=== PATIENT | female | born 1945 | race Caucasian/White ===

== ENCOUNTER 2016-10-23 15:58 | Observation (INO) ==
[2016-10-23] MEDS ORDERED: Aspirin 81 MG TAB.CHEW PO ONE (16:07)
[2016-10-23 17:01] LABS: Bilirubin,Urine Negative (Negative); Blood,Urine Negative (Negative); Clarity,Urine Clear (Clear); Color,Urine Yellow (Yellow); Glucose,Urine (UA) Normal (Normal); Ketones,Urine Negative (Negative); Leukocyte Esterase,Urine Small (Negative); Nitrite,Urine Negative (Negative); Protein,Urine Trace mg/dL (Neg-Trace); Specific Gravity,Urine 1.022 (1.010-1.025); Urobilinogen,Urine Normal (Normal)
[2016-10-23 17:04] LABS: Hyaline Casts,Urine None Seen per lpf (None-Few); Squamous Epithelial Cell,Urine Many per lpf (None-Few); WBC,Urine 15-30 per hpf (0-3)
[2016-10-23 17:16] LABS: Basophils # 0.1 K/mcL (0.0-0.2); Basophils % 0.8 %; Eosinophils # 0.4 K/mcL (0.0-0.6); Eosinophils % 3.9 %; Hematocrit 39.1 % (35.3-44.9); Hemoglobin 12.6 g/dL (11.5-15.4); Immature Granulocytes % 0.5 % (0-4); Lymphocytes % 20.7 %; Mean Corpuscular HGB Conc 32.2 g/dL (31.6-35.5); Mean Corpuscular Volume 93.1 fL (83.0-100.0); Mean Platelet Volume 10.2 fL (9.4-12.4); Monocytes # 0.6 K/mcL (0.0-1.3); Monocytes % 6.8 %; Neutrophils # 6.4 K/mcL (1.6-8.9); Platelet Count 201 K/mcL (140-400); Segmented Neutrophils % 67.3 %
[2016-10-23 17:27] LABS: Bacteria,Urine Few per hpf (None-Few)
[2016-10-23 17:33] LABS: Calcium 9.4 mg/dL (8.6-10.8); Potassium 4.1 mEq/L (3.5-4.5)
[2016-10-23] MEDS ORDERED: Ondansetron 4 MG/2 ML VIAL IVP ONE (18:28)
--- NOTE | 2016-10-23 18:43 | Emergency Department Note ---
Disposition Clinical Impression: Nausea Headache Qualifiers: Headache type: unspecified Headache chronicity pattern: unspecified pattern Intractability: not intractable Qualified Code(s): R51 - Headache Hypertension Qualifiers: Hypertension type: essential hypertension Qualified Code(s): I10 - Essential ( primary) hypertension Disposition: Still a Patient Condition: Good Referrals: NO,PCP [Non-Partnered Physician] - Forms: ED Satisfaction Letter Time of Disposition: 20:54 General Adult HPI - General Chief complaint: ED Nausea/Vomiting/Diarrhea Stated complaint: HTN/N/V Time Seen by Provider: 10/23/16 16:05 Source: patient, EMS Mode of arrival: EMS Limitations: no limitations Nursing Notes Reviewed: Yes Vital Signs Reviewed: Yes - History of Present Illness HPI Narrative: Patient presents to emergency room with complaint of headache and hypertension. She has this happen every couple months. Patient said that she acutely gets a headache nausea and pain behind her left eye. Usually after that her blood pressure gets high. Patient was concerned because her blood pressure home was greater than 201, the emergency room for evaluation. Denies any other symptoms or complaints at this point. This is happen multiple times in the past and is presenting today identical to her previous events. 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 Radiation: non-radiation Pain Severity: moderate Pain Scale: 7 Consistency: constant Improves with: nothing Worsens with: nothing Associated symptoms: Reports: denies other symptoms Treatments Prior to Arrival: none - Related Data Home Medications Medication Instructions Recorded Confirmed Lisinopril 08/23/16 amLODIPine 08/23/16 Previous Rx's Medication Instructions Recorded Diltiazem HCl [Diltiazem 12Hr ER] 120 mg PO BID #60 cap.er.12h 08/23/16 Allergies Allergy/AdvReac Type Severity Reaction Status Date / Time Sulfa (Sulfonamide Allergy Rash Verified 08/23/16 14:16 Antibiotics) All systems ED: reviewed and negative except as stated. Constitutional: Denies: fever, chills Eyes: Denies: eye pain, vision change ENT ED: Denies: ear pain Cardiovascular: Denies: chest pain, palpitations, dyspnea on exertion Respiratory: Denies: cough, dyspnea, wheezes Gastrointestinal: Denies: abdominal pain, nausea, vomiting Genitourinary: Denies: dysuria Musculoskeletal: Denies: back pain, neck pain Neurological: Denies: headache Past Medical History - Past Medical History Attestation: Yes The following information was validated with the patient. Source: patient Medical history: Reports: hypertension, other - Social History Smoking Status: Never smoker Smokeless Tobacco Status: No Alcohol use: Reports: none Drug use: Reports: none Physical Exam - General Limitations: no limitations General appearance: alert, in no apparent distress - Head Head exam: atraumatic, normocephalic, normal inspection - ENT ENT exam: normal exam, normal oropharynx, mucous membranes moist - Neck Neck exam: Present: normal inspection, full ROM, trachea midline - Chest Chest inspection: Present: normal inspection, symmetric chest wall rise - Respiratory Respiratory exam: Present: normal lung sounds bilaterally - Cardiovascular Cardiovascular exam: Present: normal rhythm, bradycardia, normal heart sounds - Abdominal Exam Abdominal exam: Present: soft, Non-Tender, normal bowel sounds. Absent: tenderness, distention, guarding, rebound, rigidity, Marcano's sign, Rovsing's sign, tenderness at McBurney's Point - Extremities Exam Extremities exam: Present: normal inspection, full ROM, normal capillary refill. Absent: tenderness - Back Exam Back exam: Present: normal inspection, full ROM. Absent: tenderness - Neurological Exam Neurological exam: Present: alert, oriented X3, CN II-XII intact, normal gait - Skin Skin exam: Present: warm, dry, intact, normal color Course Course Narrative: Patient seen and examined the time of arrival by EMS. See history of present illness. 71-year-old female presents today with acute onset of left-sided headache and neck discomfort and elevated blood pressure. She has had this happen multiple times in the past. This is a known issue for her. She has had on and off for the last several years. She describes this as identical to all of her other previous symptoms. She is concerned today because her blood pressure was much higher than normal. At home it was greater than 205 systolic. She currently denies recent illnesses fevers chills nausea vomiting diarrhea. Denies chest pain shortness of breath headache or vision change prior to these issues. Presenting symptoms today came on acutely prior to coming in. Patient is done discussion as well as the evaluation while cardiac treatment course completed here including EKG troponin x-ray. The physical examination this time is benign. Head is atraumatic pupils are equal round reactive to light. Extraocular muscles are intact. Trachea is midline. Full range of motion of the neck is noted. Upper extremities do not show any acute issue this time. She moves both extremities Deficit. Lungs are clear heart is regular abdomen is soft nontender nondistended no signs of significant pitting edema in the bilateral lower extremities. Bilateral pulses were collected on presentation and patient has significant deviation in pulse pressure between the right upper and left upper extremity. Right upper extremity has a blood pressure 156/95. Left upper extremity is 195 systolic and greater. There is concern for possible intrathoracic vascular related issue of mass effect secondary to the deviations and blood pressure. At this time we will provide symptom control as needed. CT had loss of your secondary to the persistent nausea as well as the left- sided headache that appears to be worse today than before. Basic laboratory workup will be completed at this time to address signs of end organ damage. Patient given aspirin as well as this time. EKG to be collected. Patient is otherwise resting comfortably in the bed in no acute distress at this point. Headache is getting better as her blood pressures coming down. We will continue to monitor his emergency room treatment course is completed - Reevaluation(s) Reevaluation #1: CT of the head is negative. Labs are within normal limits. Kidney function is at baseline with no acute arrangements. Based on his symptoms history and presentation patient will have CT angios chest address for any vascular or mass effect related issues causing the deviation and blood pressure. Patient is otherwise resting comfortably in the bed this time symptoms were almost completely resolved at this time. We will continue to monitor his treatment course is completed. Patient is also complaining of nausea at this time. Nausea medication be provided. Again I discussed with her the presentation symptoms and she says that this is identical to all of her other previous hypertensive issues. Patient does not show any acute signs of altered mental status or strokelike symptoms concerning for hypertensive encephalopathy. Time: 18:55 Reevaluation #2: Patient ambulated on the emergency room. Blood pressure was 220/119 after this. When she is resting her blood pressure is appropriate for going home all ambulating she gets increasing dizziness and unsteady gait. Her blood pressure does go up. Aside from that she denies any other symptoms. Based on this issue as well as her history of similar episodes discussed with the patient and the family admission versus discharge. Patient elects to be admitted this time for evaluation of medication evaluation. We will monitor in the emergency room his admission process is completed Time: 20:14 Reevaluation #3: Patient was discussed with the hospitalist Dr. Mcdaniel. We reviewed the patient' s presentation symptoms medical history and medical intervention. He had no other questions or issues at this time. Patient is otherwise stable. Blood pressure is 177/92 in the room at this point. She still has intermittent dizziness when the blood pressure runs up. Patient will be observed in the hospital for evaluation and possible medication augmentation. Patient is stable and in good medical condition of the time of admission. Family is happy with the plan as well as the patient this time. We will continue monitoring until admission process is completed Time: 20:54 Vital Signs Temperature 98.0 F 10/23/16 15:59 Pulse Rate 58 10/23/16 15:59 Respiratory Rate 20 10/23/16 15:59 Blood Pressure 156/103 10/23/16 15:59 O2 Sat by Pulse Oximetry 94 10/23/16 15:59 Temperature 98.0 F 10/23/16 15:59 Pulse Rate 54 10/23/16 17:38 Respiratory Rate 20 10/23/16 17:38 Blood Pressure 186/87 10/23/16 17:38 O2 Sat by Pulse Oximetry 96 10/23/16 17:38 Oxygen Delivery Oxygen Delivery Room Air Medical Decision Making - MDM Narrative Medical decision making narrative: Elevated blood pressure, headache - Medical Records Medical records reviewed: Yes I reviewed the patient's medical records. - Lab Data Lab results reviewed: Yes I reviewed the patient's lab results. Result diagrams: 10/23/16 16:57 10/23/16 16:57 Lab Results 10/23/16 10/23/16 10/23/16 Range/Units 16:38 16:57 16:57 WBC 9.5 (4.3-11.1) K/mcL RBC 4.20 (3.82-4.97) M/mcL Hgb 12.6 (11.5-15.4) g/dL Hct 39.1 (35.3-44.9) % MCV 93.1 (83.0-100.0) fL MCH 30.0 (28.0-33.3) pg MCHC 32.2 (31.6-35.5) g/dL RDW 14.0 (11.5-14.5) % Plt Count 201 (140-400) K/mcL MPV 10.2 (9.4-12.4) fL Immature Gran % 0.5 (0-4) % Seg Neutrophils % 67.3 % Lymphocytes % 20.7 % Monocytes % 6.8 % Eosinophils % 3.9 % Basophils % 0.8 % Neutrophils # 6.4 (1.6-8.9) K/mcL Lymphocytes # 2.0 (0.6-4.6) K/mcL Monocytes # 0.6 (0.0-1.3) K/mcL Eosinophils # 0.4 (0.0-0.6) K/mcL Basophils # 0.1 (0.0-0.2) K/mcL Sodium (136-145) mEq/L Potassium (3.5-4.5) mEq/L Chloride (98-109) mEq/L Carbon Dioxide (19-29) mEq/L BUN (7-20) mg/dL Creatinine (0.57-1.11) mg/dL Est GFR ( Amer) (> 60) Est GFR (Non-Af Amer) (> 60) BUN/Creatinine Ratio (6-26) Glucose (70-99) mg/dL Calculated Osmolality (280-300) Calcium (8.6-10.8) mg/dL Troponin I (0-0.03) ng/mL B-Natriuretic Peptide 120 H (0-100) pg/mL Urine Color Yellow (Yellow) Urine Clarity Clear (Clear) Urine pH 7.0 (5.0-8.0) pH Units Ur Specific [place] 1.022 (1.010-1.025) Urine Protein Trace (Neg-Trace) mg/dL Urine Glucose (UA) Normal (Normal) mg/dL Urine Ketones Negative (Negative) mg/dL Urine Blood Negative (Negative) Urine Nitrite Negative (Negative) Urine Bilirubin Negative (Negative) Urine Urobilinogen Normal (Normal) mg/dL Ur Leukocyte Esterase Small H (Negative) Urine Microscopic RBC 3-5 H (0-3) per hpf Urine Microscopic WBC 15-30 H (0-3) per hpf Ur Squamous Epith Cells Many H (None-Few) per lpf Urine Bacteria Few (None-Few) per hpf Hyaline Casts None Seen (None-Few) per lpf Ur Culture Indicated? YES A (NO) 10/23/16 10/23/16 Range/Units 16:57 16:57 WBC (4.3-11.1) K/mcL RBC (3.82-4.97) M/mcL Hgb (11.5-15.4) g/dL Hct (35.3-44.9) % MCV (83.0-100.0) fL MCH (28.0-33.3) pg MCHC (31.6-35.5) g/dL RDW (11.5-14.5) % Plt Count (140-400) K/mcL MPV (9.4-12.4) fL Immature Gran % (0-4) % Seg Neutrophils % % Lymphocytes % % Monocytes % % Eosinophils % % Basophils % % Neutrophils # (1.6-8.9) K/mcL Lymphocytes # (0.6-4.6) K/mcL Monocytes # (0.0-1.3) K/mcL Eosinophils # (0.0-0.6) K/mcL Basophils # (0.0-0.2) K/mcL Sodium 141 (136-145) mEq/L Potassium 4.1 (3.5-4.5) mEq/L Chloride 108 (98-109) mEq/L Carbon Dioxide 27 (19-29) mEq/L BUN 23 H (7-20) mg/dL Creatinine 1.12 H (0.57-1.11) mg/dL Est GFR ( Amer) 58 L (> 60) Est GFR (Non-Af Amer) 48 L (> 60) BUN/Creatinine Ratio 21 (6-26) Glucose 98 (70-99) mg/dL Calculated Osmolality 296 (280-300) Calcium 9.4 (8.6-10.8) mg/dL Troponin I 0.00 (0-0.03) ng/mL B-Natriuretic Peptide (0-100) pg/mL Urine Color (Yellow) Urine Clarity (Clear) Urine pH (5.0-8.0) pH Units Ur Specific [place] (1.010-1.025) Urine Protein (Neg-Trace) mg/dL Urine Glucose (UA) (Normal) mg/dL Urine Ketones (Negative) mg/dL Urine Blood (Negative) Urine Nitrite (Negative) Urine Bilirubin (Negative) Urine Urobilinogen (Normal) mg/dL Ur Leukocyte Esterase (Negative) Urine Microscopic RBC (0-3) per hpf Urine Microscopic WBC (0-3) per hpf Ur Squamous Epith Cells (None-Few) per lpf Urine Bacteria (None-Few) per hpf Hyaline Casts (None-Few) per lpf Ur Culture Indicated? (NO) - Radiology Data Radiology results reviewed: Yes I reviewed the patient's radiology results. Chest x-ray CT that are both negative for pathology at this time - EKG Data EKG #1 EKG attestation: Yes I reviewed and interpreted this EKG. EKG shows normal: sinus rhythm, axis, QRS complexes, ST-T waves Rate: bradycardia Rhythm: NSR Heart block present: 1st Degree When compared to previous EKG there are: no significant changes Interpretation: no acute changes, unchanged when compared to prior tracing (date ) (Patient has first-degree heart block on this examination that is the only difference previous EKG)
--- NOTE | 2016-10-23 22:30 | Internal Med History&Physical ---
<OwenJustin - Last Filed: 10/23/16 22:55> Date of Encounter: 10/23/16 Time of Encounter: 22:27 Assessment and Plan (1) Hypertensive urgency Current visit: Yes Status: Acute She does not meet the criteria for resistant hypertension as she is only on two blood pressure medications and takes Lasix as needed No end organ damage; negative trop and Cr is at baseline, but will trend both Will continue home Lisinopril in absence of KECIA, but hold Coreg given bradycardia Start Hydralazine 50 mg q8hr, with goal BP of 160 systolic Obtain echocardiogram and carotid ultrasound in presence of near syncope (2) Bradycardia Current visit: Yes Status: Chronic Unclear if symptoms are from bradycardia vs. hypertensive urgency Will hold home Coreg for now, but may restart if heart rate improves Obtain echocardiogram, but she may require further outpatient follow up (3) GERD (gastroesophageal reflux disease) Current visit: Yes Status: Chronic Start on PPI and home Ranitidine PRN Qualifiers: Qualified Code(s): K21.9 - Gastro-esophageal reflux disease without esophagitis (4) DVT prophylaxis Current visit: Yes Status: Acute Internal Medicine - H&P: HPI Chief complaint: headache HTN Admitted From: Home Plans for Post Hospital Care: Home History of present illness: Ms. Kay is a 71 year old female presents to the emergency department with headache and high blood pressure. Patient states that her headache started at 2 :30 this afternoon when she was at rest. She describes the pain as in the back left side and radiates to behind her left eye, causing some blurry vision. She also complained of dizziness and nausea, causing her to vomit one time. She took her blood pressure at home which read systolic over 200. She also felt short of breath during exertion, and states exertion makes her symptoms worse. Patient reports having similar episodes in the past related to high blood pressure, but states that this episode is more severe than usual. Of note, she has been diagnosed with high blood pressure since this July and has failed multiple blood pressure medications including Norvasc and metoprolol, and is currently on lisinopril, coreg and as needed Lasix. Patient denies any history of migraines, seizures, strokes, but does report both mother and maternal grandmother having strokes in the past. Patient denies any slurred speech, facial droop, chest pain, loss of consciousness, trauma, fever, diarrhea, constipation. Past Med Surg Social Fam HX - Past Medical History Medical history: hypertension, other - Social History Smoking Status: Never smoker Smokeless Tobacco Status: No Alcohol use: none Drug use: none Internal Medicine - H&P: Meds Carvedilol [Coreg] 6.25 mg PO BIDWM 08/23/16 [History] Lisinopril [Zestril] 20 mg PO BID 08/23/16 [History] Ranitidine HCl [Zantac 75] 75 mg PO DAILY PRN 10/23/16 [History] Allergies Sulfa (Sulfonamide Antibiotics) Allergy (Verified 08/23/16 14:16) Rash All Systems PM: A 10-system review of systems was performed and is negative for pertinent findings except as documented above in the HPI. - Constitutional Constitutional: no chills, no fever(s), no night sweats - EENT Eyes: blurry vision (L > R), no change in vision, no discharge, no pain, no photophobia Ears: no ear discharge, no ear pain, no tinnitus Nose, mouth and throat: no dysphagia, no nasal discharge, no neck pain, no sore throat - Cardiovascular Cardiovascular ROS IM: dyspnea on exertion, no chest pain, no diaphoresis, no dyspnea, no lightheadedness, no palpitations, no syncope - Respiratory Respiratory: dyspnea on exertion, no cough, no dyspnea, no wheezing, no excessive phlegm production - Gastrointestinal Gastrointestinal: nausea, vomiting, no abdominal pain, no diarrhea, no hematemesis, no hematochezia, no melena - Genitourinary Genitourinary: no change in urinary stream, no dysuria, no flank pain, no hematuria - Musculoskeletal Musculoskeletal ROS IM: no numbness, no tingling - Integumentary Integumentary IM: no rash, no unusual bruising - Neurological Neurological ROS: headache(s), no confusion, no convulsions, no focal weakness, no numbness, no tingling, no tremor(s), no weakness - Hematologic/Lymphatic Hematologic/Lymphatic: no easy bruising - Constitutional Vitals: Temp Pulse Resp BP Pulse Ox 97.6 F 54 18 186/74 97 10/23/16 21:45 10/23/16 21:45 10/23/16 21:45 10/23/16 21:45 10/23/16 21:45 General appearance: Present: cooperative, morbidly obese, pleasant, no acute distress, answers questions appropriately - Head Head exam: Present: atraumatic, normocephalic - Eye Eye exam: Present: EOMI, PERRL, conjuntiva pink, sclera anicteric - Neck Neck exam general surgery: Present: supple, trachea midline. Absent: lymphadenopathy - Respiratory Respiratory exam: Present: CTAB. Absent: accessory muscle use, rales, rhonchi, wheezes - Cardiovascular Cardiovascular exam: Present: bradycardia, +S1, +S2. Absent: diastolic murmur, gallop, rubs, systolic murmur - GI/Abdominal GI/Abdominal exam: Present: normal bowel sounds, soft, no peritoneal signs. Absent: distended, tenderness - Extremities Exam Extremities exam: Present: warm, radial pulses palpable and symetrical. Absent : calf tenderness, cyanotic, pedal edema - Neurological Exam Neurological exam: Present: alert, CN II-XII intact, no focal deficits, strengths equal and symetr throughout. Absent: facial droop, speech deficit - Skin Skin exam: Present: dry, intact Internal Med - H&P Results - Labs CBC & Chem 7: 10/23/16 16:57 10/23/16 16:57 <Von Mcdaniel - Last Filed: 10/24/16 02:22> Date of Encounter: 10/24/16 Internal Medicine - H&P: HPI History of present illness: Ms. Kay is a 71 year old female Past Med Surg Social Fam HX - Past Medical History Medical history: GERD - Past Surgical History Surgical History: appendectomy, hysterectomy, orthopedic, other (bilateral knee replacement, bilateral carpal tunnel release) - Family History Mother Hx Family Endocrine Disorder: Yes (diabetes) - Additional Family History Additional family history: both parents are , mother had DM, uncontrolled HTN and mini strokes, maternal grandmother had HTN and stroke, father had kidney cancer that spread to the lungs, no family hx of [place] All Systems PM: A 10-system review of systems was performed and is negative for pertinent findings except as documented above in the HPI. - Constitutional Vitals: Temp Pulse Resp BP Pulse Ox 97.8 F 51 15 173/75 95 10/23/16 23:50 10/23/16 23:50 10/23/16 23:50 10/23/16 23:50 10/23/16 23:50 Internal Med - H&P Results - Labs CBC & Chem 7: 10/24/16 00:51 10/23/16 16:57 Labs: Short CBC 10/24/16 Range/Units 00:51 WBC 9.3 (4.3-11.1) K/mcL Hgb 12.6 (11.5-15.4) g/dL Hct 40.2 (35.3-44.9) % Plt Count 206 (140-400) K/mcL Neutrophils # 5.3 (1.6-8.9) K/mcL - EKG Data -: EKG Interpreted by Myself - Diagnostic Studies CT scan - head Status: image reviewed by me CT scan - chest Status: image reviewed by me - Attending Attestation I personally interviewed and examined this patient and my medical decision- making was reviewed with the Resident Physician. I agree with the documented findings, disposition and treatment plan as described except to the extent edited above.
[2016-10-23] MEDS ORDERED: Naloxone 0.4 MG/ML INJ IVP PRN (22:51)
[2016-10-23] MEDS ORDERED: Ondansetron ODT 4 MG TAB.RAPDIS SL PRN (22:51)
[2016-10-23] MEDS ORDERED: Famotidine 20 MG TABLET PO PRN (22:54)
[2016-10-23] MEDS: hydrALAZINE 25 MG TABLET PO SCH (23:54)
[2016-10-24 02:08] LABS: Basophils # 0.1 K/mcL (0.0-0.2); Basophils % 0.9 %; Eosinophils # 0.3 K/mcL (0.0-0.6); Eosinophils % 3.6 %; Hematocrit 40.2 % (35.3-44.9); Hemoglobin 12.6 g/dL (11.5-15.4); Immature Granulocytes % 0.4 % (0-4); Lymphocytes # 2.8 K/mcL (0.6-4.6); Lymphocytes % 30.4 %; Mean Corpuscular HGB Conc 31.3 g/dL (31.6-35.5); Mean Corpuscular Hemoglobin 29.1 pg (28.0-33.3); Mean Corpuscular Volume 92.8 fL (83.0-100.0); Mean Platelet Volume 10.3 fL (9.4-12.4); Monocytes # 0.7 K/mcL (0.0-1.3); Monocytes % 7.6 %; Neutrophils # 5.3 K/mcL (1.6-8.9); Platelet Count 206 K/mcL (140-400); Red Blood Count 4.33 M/mcL (3.82-4.97); Red Cell Distribution Width 13.7 % (11.5-14.5); Segmented Neutrophils % 57.1 %
[2016-10-24 02:19] LABS: Albumin 3.6 g/dL (3.5-5.0); Albumin/Globulin Ratio 1.1 (1.1-2.2); Bilirubin,Total 0.3 mg/dL (0.2-1.2); Calcium 9.8 mg/dL (8.6-10.8); Globulin 3.4 g/dL (2.4-3.5); Potassium 3.7 mEq/L (3.5-4.5)
[2016-10-24] MEDS: *HR* Heparin 5,000 UNIT/ML VIAL SQ SCH ×2 (05:56→17:12)
[2016-10-24] MEDS: hydrALAZINE 25 MG TABLET PO SCH ×3 (05:56→20:39)
[2016-10-24] MEDS: Lisinopril 20 MG TABLET PO SCH ×2 (08:15→20:38)
[2016-10-24] MEDS: Acetaminophen 325 MG TABLET PO PRN ×2 (08:24→20:39)
--- NOTE | 2016-10-24 18:39 | Internal Med Progress Note ---
Date of Encounter: 10/24/16 Time of Encounter: 09:55 - Assessment and plan (1) Hypertensive urgency Current Visit: Yes Status: Acute Assessment and plan: Blood pressure has decreased since arrival. We will continue the hydralazine 50 mg by mouth every 8 hours and lisinopril 20 mg by mouth twice a day. Coreg has been stopped. 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 (2) Bradycardia Current Visit: Yes Status: Chronic Assessment and plan: Patient's pulse consistently in the 50s. IV fluids as ordered. Coreg has been stopped. Orthostatic vital signs have been ordered. Continue telemetry Consider cardiology consult if pulse does not increase with activity. (3) Headache Current Visit: Yes Status: Acute Assessment and plan: Patient states that she has headache for unknown amount of time, "I have had it for a while." Suddenly became worse yesterday. His left frontal, parietal, occipital. Most likely due to hypertension. She does get some relief with Tylenol. We will continue to monitor his blood pressure is controlled. Qualifiers: Headache type: unspecified Headache chronicity pattern: unspecified pattern Intractability: not intractable Qualified Code(s): R51 - Headache (4) GERD (gastroesophageal reflux disease) Current Visit: Yes Status: Chronic Assessment and plan: Chronic. Continue home medication. Qualifiers: Esophagitis presence: esophagitis presence not specified Qualified Code(s) : K21.9 - Gastro-esophageal reflux disease without esophagitis (5) KECIA (acute kidney injury) Current Visit: Yes Status: Acute Assessment and plan: Creatinine 1.17, GFR 46. As likely related to hypertensive urgency. We will continue to monitor labs and vital signs. Avoid nephrotoxins. Avoid NSAIDs. (6) DVT prophylaxis Current Visit: Yes Status: Acute Assessment and plan: Heparin subcutaneous. - Time Spent With Patient less than 15 minutes - Subjective Interval history: Patient was seen and assessed at 9:55 AM. She reports left frontal, parietal and occipital pressure. She states, "I have had it for a while" they became worse yesterday with sudden onset. She is unable to state how long she has had this head pressure patient states that she checked her blood pressure with headache became worse and it was 201/100 at the time of the incident. Patient still reports approximately 5/10 headache pain. She is also concerned about her blood pressure. She does have some minimal peripheral edema bilaterally, left greater than right. She says this is normal for her. She denies vision changes, intermittent nausea, no dizziness or falls. Currently, her blood pressure has been well controlled. Primary nurses that her headache is somewhat better. We will continue to monitor her blood pressure and treat her headache, which is most likely due to hypertension. - Constitutional Vitals: Temp Pulse Resp BP Pulse Ox 98.3 F 66 20 141/61 97 10/24/16 18:27 10/24/16 18:27 10/24/16 18:27 10/24/16 18:27 10/24/16 18:27 General appearance: Present: cooperative, morbidly obese, pleasant, no acute distress, answers questions appropriately - Head Head exam: Present: normal inspection - Eye Eye exam: Present: normal appearance, PERRL, conjuntiva pink. Absent: nystagmus , periorbital swelling, periorbital tenderness - ENT ENT exam: Present: normal exam - Neck Neck exam general surgery: Present: normal inspection. Absent: lymphadenopathy , tenderness - Respiratory Respiratory exam: Present: CTAB. Absent: chest wall tenderness, rales, rhonchi , stridor, wheezes - Cardiovascular Cardiovascular exam: Present: RRR, +S1, +S2. Absent: diastolic murmur, systolic murmur - GI/Abdominal GI/Abdominal exam: Present: distended, normal bowel sounds, soft. Absent: hepatomegaly, tenderness - Extremities Exam Extremities exam: Present: normal capillary refill, normal inspection, pedal edema, warm, radial pulses palpable and symetrical. Absent: tenderness - Neurological Exam Neurological exam: Present: alert, oriented X3, no focal deficits, strengths equal and symetr throughout. Absent: facial droop - Skin Skin exam: Present: dry, normal color, warm. Absent: rash Internal Medicine: Result - Labs CBC & Chem 7: 10/24/16 00:51 10/24/16 00:51 Labs: Short CBC 10/24/16 Range/Units 00:51 WBC 9.3 (4.3-11.1) K/mcL Hgb 12.6 (11.5-15.4) g/dL Hct 40.2 (35.3-44.9) % Plt Count 206 (140-400) K/mcL Neutrophils # 5.3 (1.6-8.9) K/mcL BMP 10/24/16 00:51 Sodium 141 Potassium 3.7 Chloride 106 Carbon Dioxide 27 BUN 20 Creatinine 1.17 H Glucose 138 H Calcium 9.8 Cardiac Enzymes 10/24/16 10/24/16 Range/Units 00:51 04:34 Troponin I 0.01 0.01 (0-0.03) ng/mL Liver Function 10/24/16 Range/Units 00:51 Total Bilirubin 0.3 (0.2-1.2) mg/dL AST 12 (5-34) Units/L ALT 8 (0-55) Units/L Alkaline Phosphatase 81 (38-126) Units/L Albumin 3.6 (3.5-5.0) g/dL Consult Discharge Plan - Plan Referrals: Alexander Rogel MD [Primary Care Provider] -
[2016-10-24] MEDS: 0.9 % Sodium Chloride 1,000 ML IVC SCH (19:00)
--- NOTE | 2016-10-25 06:49 | Electrocardiograph Report ---
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
[2016-10-25] MEDS: *HR* Heparin 5,000 UNIT/ML VIAL SQ SCH (07:01)
[2016-10-25] MEDS: hydrALAZINE 25 MG TABLET PO SCH (07:01)
[2016-10-25 07:03] LABS: Calcium 8.9 mg/dL (8.6-10.8); Potassium 4.2 mEq/L (3.5-4.5)
[2016-10-25 07:05] LABS: Basophils # 0.1 K/mcL (0.0-0.2); Basophils % 1.2 %; Eosinophils # 0.4 K/mcL (0.0-0.6); Hematocrit 37.5 % (35.3-44.9); Hemoglobin 11.7 g/dL (11.5-15.4); Immature Granulocytes % 0.7 % (0-4); Lymphocytes # 2.4 K/mcL (0.6-4.6); Lymphocytes % 29.3 %; Mean Corpuscular HGB Conc 31.2 g/dL (31.6-35.5); Mean Corpuscular Hemoglobin 29.9 pg (28.0-33.3); Mean Corpuscular Volume 95.9 fL (83.0-100.0); Monocytes # 0.8 K/mcL (0.0-1.3); Monocytes % 9.4 %; Neutrophils # 4.4 K/mcL (1.6-8.9); Platelet Count 186 K/mcL (140-400); Red Blood Count 3.91 M/mcL (3.82-4.97); Red Cell Distribution Width 14.1 % (11.5-14.5); Segmented Neutrophils % 54.4 %
[2016-10-25] MEDS: 0.9 % Sodium Chloride 1,000 ML IVC SCH (07:07)
[2016-10-25] MEDS ORDERED: Nitrofurantoin (BID) 100 MG CAPSULE PO SCH (08:00)
[2016-10-25] MEDS: Lisinopril 20 MG TABLET PO SCH (08:27)
--- NOTE | 2016-10-25 11:47 | Discharge Summary ---
Date of Encounter: 10/25/16 Time of Encounter: 09:35 - Discharge Diagnosis (1) Hypertensive urgency Priority: Secondary Status: Resolved Comments: Blood pressure has returned to normal. We will continue the lisinopril 20 mg by mouth twice daily and add hydrochlorothiazide 12.5 mg by mouth daily.. I will restart her Coreg one dose a day. Primary care physician can adjust medications as needed. (2) Bradycardia Priority: Secondary Status: Chronic Comments: Patient pulse has been in the 60s today. Beta saloni has been stopped. Patient will need to follow-up with primary care for further evaluation. (3) Headache Priority: Secondary Status: Resolved Comments: Patient denies headache today. Resolved. Most likely due to hypertension. Since blood pressure has normalized, her headache has resolved. Qualifiers: Headache type: unspecified Headache chronicity pattern: unspecified pattern Intractability: not intractable Qualified Code(s): R51 - Headache (4) GERD (gastroesophageal reflux disease) Priority: Secondary Status: Chronic Comments: Chronic. Continue home medications. Qualifiers: Esophagitis presence: esophagitis presence not specified Qualified Code(s) : K21.9 - Gastro-esophageal reflux disease without esophagitis (5) KECIA (acute kidney injury) Priority: Secondary Status: Resolved Comments: Renal function has returned to normal. Patient is aware. We discussed increasing fluid intake and monitoring blood pressure more closely. We also discussed looking for early treatment for hypertension. Patient verbalizes understanding and agreement. (6) DVT prophylaxis Priority: Secondary Status: Acute Comments: Heparin subcutaneous (7) UTI (urinary tract infection) Priority: Secondary Status: Acute Comments: Urine collected on October 23 showed small amount of leukocyte esterase, 3-5 red blood cells, 15-30 white rice, few bacteria. Culture is returned and is positive for strep agalactiae. Patient will be treated with Augmentin 875 twice a day for 5-7 days. Patient denies any urinary symptoms. No abdominal pain, flank pain, no CVA tenderness, no dysuria, increased frequency or urgency , no elaina hematuria. Qualifiers: Urinary tract infection type: acute cystitis Hematuria presence: without hematuria Qualified Code(s): N30.00 - Acute cystitis without hematuria - Discharge Medications Prescriptions: Amoxicillin/Clavulanate [Augmentin] 875 mg PO BIDWM #14 tablet hydroCHLOROthiazide [Hydrochlorothiazide] 12.5 mg PO DAILY #30 tab Home Medications: Lisinopril [Zestril] 20 mg PO BID 08/23/16 [History] Ranitidine HCl [Zantac 75] 75 mg PO DAILY PRN 10/23/16 [History] Amoxicillin/Clavulanate [Augmentin] 875 mg PO BIDWM #14 tablet 10/25/16 [Rx] hydroCHLOROthiazide [Hydrochlorothiazide] 12.5 mg PO DAILY #30 tab 10/25/16 [Rx] Allergies/Adverse Reactions: Allergies Sulfa (Sulfonamide Antibiotics) Allergy (Verified 08/23/16 14:16) Rash Procedures/tests Complete & Pending: Procedures Performed prior 72 hours Category Date Time Status EV carotid duplex imaging BI Routine Y 10/24/16 09:20 Completed EV echocardiogram Routine Y 10/24/16 09:20 Completed Date of admission: 10/23/16 21:08 Primary care physician: Alexander Rogel MD Discharging clinician: Melissa Schuster Anticipated date of discharge: 10/25/16 - Patient Status Disposition: Home, Self-Care Condition: Good Functional capacity at discharge: independent ambulation Overall status at discharge: patient is progressing back to baseline - Discharge Instructions Follow Up With: Ghazal Pugh MD [Partnered Physician] - 11/01/16 2:00 pm Additional Instructions: Please follow up with your primary care physician in the next 7-10 days for a follow up visit and evaluation of your blood pressure and medication review. Take your blood pressure as we discussed, twice daily. Start your new blood pressure medication in the morning. STart your antibiotic tonight. Make sure that you are drinking plenty of water every day. Return to the ER immediately if you start having symptoms again or if your blood pressure is severely elevated. - Diet and Activity Activity: increase activity as tolerated Diet: low salt diet Interval History: Mrs. Kay is a 71-year-old female with prior medical history of hypertension who presented to the emergency department with headache and hypertensive urgency. Patient states her headache started at 2:30 on the day of admission while she was at rest. She said her headache was primarily left frontal, parietal, occipital. She also complained of dizziness, and nausea, with one episode of vomiting. She took her blood pressure at home and it was 200/102. She states that she also felt short of breath with exertion and her symptoms became worse with exertion. She states that she has been on multiple antihypertensives and was currently taking lisinopril, Coreg, and Lasix as needed. Patient was bradycardic into the 40s and low 50s and her Coreg was stopped on admission. Her blood pressure was well controlled on hydralazine by mouth during the admission, however she did not feel like she wanted to take blood pressure medicine 3 times daily. Per JNC 8 guidelines, I took her back to thiazide diuretic and started her on hydrochlorothiazide 12.5 mg by mouth daily. Patient Discussed close blood pressure monitoring and need for close follow-up with primary care provider for reevaluation of blood pressure medication changes. Patient states that she feels much better today and that her headache has resolved. She denies blurred vision or nausea. She denies palpitations or chest pain. Patient also diagnosed with UTI during this visit. Patient positive for strep agalactiae, sensitivity was not done due to penicillin being the standard medication of choice for treatment. She will be treated with Augmentin by mouth and again, will need to follow up for recheck of urine after course of antibiotics is finished. Patient had a KI during admission. Renal labs have returned within normal limits. We did rehydrate patient with normal saline and noticed an improvement in labs today. We discussed adequate hydration, as well as maintaining blood pressure within goal levels. We discussed a low-sodium diet, patient said should not be a problem. She may need to see a dietitian if so warranted by primary care. Patient's labs and vital signs have been within normal limits. She states that she is ready to go home and is stable for discharge. Hospital course: Ms. Kay is a 71 year old female - Time Spent with Patient Total time spent providing and/or coordinating discharge services: Less than 30 minutes - Constitutional Vitals: Temp Pulse Resp BP Pulse Ox 98.0 F 51 15 196/82 98 10/25/16 11:23 10/25/16 11:23 10/25/16 11:23 10/25/16 11:23 10/25/16 11:23 General appearance: Present: cooperative, A&O X 3, morbidly obese, pleasant, no acute distress, answers questions appropriately - Head Head exam: Present: normal inspection - Eye Eye exam: Present: normal appearance, conjuntiva pink - ENT ENT exam: Present: mucous membranes moist, normal exam, normal external ear exam - Neck Neck exam general surgery: Present: normal inspection. Absent: lymphadenopathy , tenderness - Respiratory Respiratory exam: Present: CTAB. Absent: prolonged expiratory phase, rales, respiratory distress, rhonchi, stridor, wheezes - Cardiovascular Cardiovascular exam: Present: RRR, +S1, +S2. Absent: clicks, diastolic murmur, gallop, systolic murmur - GI/Abdominal GI/Abdominal exam: Present: distended, normal bowel sounds, soft. Absent: hepatomegaly, tenderness - Extremities Exam Extremities exam: Present: normal capillary refill, warm, radial pulses palpable and symetrical. Absent: pedal edema, tenderness - Neurological Exam Neurological exam: Present: alert, oriented X3, no focal deficits. Absent: facial droop, speech deficit - Skin Skin exam: Present: dry, intact, normal color. Absent: warm
[2016-10-25] MEDS ORDERED: hydroCHLOROthiazide 25 MG TABLET PO SCH (12:00)
[2016-10-25] MEDS ORDERED: cloNIDine HCl 0.1 MG TABLET PO ONE (14:09)
--- NOTE | 2016-10-25 14:36 | Carotid Imaging Report ---
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 Recommendations: After imaging the patient returned to their room. Findings Carotid Duplex: Right: There is antegrade spectral Doppler flow patterns in the right vertebral artery. Left: There is antegrade spectral Doppler flow patterns in the left vertebral artery. Prior Study: No prior study available for comparison. Carotid Results Right PSV EDV Assessment Proximal CCA 60 15 Mid CCA 67 19 Distal CCA 44 23 Bifurcation 43 13 Proximal ICA 71 27 Mid ICA 72 27 Distal ICA 77 28 ECA 142 17 Vertebral Artery 77 23 Antegrade Flow Left PSV EDV Assessment Proximal CCA 122 24 Mid CCA 83 21 Distal CCA 72 21 Bifurcation 55 18 Proximal ICA 82 30 Mid ICA 91 25 Distal ICA 111 32 ECA 97 12 Vertebral Artery 66 21 Antegrade Flow Ratio's Right ICA/CCA Ratio: 1.15 ICA/CCA Values: 77/67 Left ICA/CCA Ratio: 1.34 ICA/CCA Values: 111/83 Updated by Esdras Wood MD, FACS on 10/25/2016 2:29:45 PM Esdras Wodo MD electronically signed on 10/25/2016 2:30:10 PM with status of Final
[2016-10-25 15:25] VITALS: BP 176/89
== END 2016-10-25 16:09 | disposition home or self-care (01) ==
LOC: 3BNU 15:58 → EMEROO 15:58 → 3BNU 21:30
PROVIDERS: ADMIT Registered Nurse; ATTEND Registered Nurse